=== PATIENT | female | born 1950 | race Caucasian/White ===

== ENCOUNTER 2017-06-24 08:46 | Outpatient (CLI) | payer OTHER ==
[~2017-06-24 08:46] MED LIST: CILOSTAZOL100 MG PO; CLOPIDOGREL BIS75 MG PO; DOLOGESIC 500-1 EACH PO; FORTAMET1000 MG PO; GABAPENTIN400 MG PO; GABAPENTIN800 MG PO; HUMALOG KW100 UNIT/1; HUMULIN N100 UNIT/2; NIFEDIPINE ER90 M1 PO; OMEPRAZOLE20 MG PO
== END 2017-06-24 08:53 | disposition home or self-care (01) ==
LOC: SONOGRAMA 08:46
DX: E04.1 Nontoxic single thyroid nodule (principal)

== ENCOUNTER 2023-04-26 09:14 | Outpatient (CLI) | payer OTHER | END 2023-04-26 09:18 | disposition home or self-care (01) | LOC: SONOGRAMA 09:14 | PROVIDERS: ATTEND Pathology Anatomic Pathology & Clinical Pathology | DX: E04.1 Nontoxic single thyroid nodule (principal); D34 Benign neoplasm of thyroid gland ==